=== PATIENT | female | born 1935 | race Caucasian/White ===

== ENCOUNTER 2017-07-25 19:49 | Inpatient (IN) | payer OTHER ==
[~2017-07-25] VITALS: Ht 144.8 cm; Wt 57.7 kg
[~2017-07-25 19:49] MED LIST: BENICAR40 MG PO; CIPROFLOXACIN PO; CORE25 PO; ECO81 PO; FENOFIBRATE145 M1 PO; GLUCOPHAGE1000 MG PO; IMDUR30 MG PO; JANUVIA100 M1 PO; LEVOTHYROXIN0.075 M2 PO; MAPAP325 MG PO; OYSTERCAL 500500 MG PO; VITAMIN D35000 IU PO; Z PO; ZYL100 PO
[2017-07-25 20:32] LABS: UA SPECIFIC GRAVITY 1.025 (1.005-1.035); microscopic required? YES; urine erythrocyte TRACE (NEGATIVE)
[2017-07-25 20:33] LABS: BASOPHIL % 0.1 % (0-2); PLATELET COUNT 165 x10^3mcL (130-400)
[2017-07-25 20:41] LABS: CARBON DIOXIDE 27.2 mmol/L (21-32); CHLORIDE SERUM 108 mmol/L (98-107); GLUCOSE SERUM 243 mg/dL (74-106); POTASSIUM SERUM 3.2 mmol/L (3.5-5.1); SODIUM SERUM 140 mmol/L (136-145)
[2017-07-25 20:45] LABS: ALKALINE PHOSPHATASE 65 U/L (46-116); ALT/SGPT 12 U/L (14-59); AST/SGOT 13 U/L (15-37); BILIRUBIN TOTAL 0.5 mg/dL (0.20-1.00)
[2017-07-25 20:46] LABS: ALBUMIN 2.5 g/dL (3.4-5.0); TOTAL PROTEIN, SERUM 5.6 g/dL (6.4-8.2)
[2017-07-25] MEDS ORDERED: LEVOFLOXACIN500 M1 PO (21:05)
[2017-07-25] MEDS ORDERED: LEVOTHYROXINE0.15 M2 PO (21:08)
[2017-07-25] MEDS ORDERED: ALDACTONE25 MG PO (21:08)
[2017-07-25] MEDS ORDERED: PROCHLORPERAZIN10 MG PO (21:08)
[2017-07-25] MEDS ORDERED: NITROFURANTOIN100 MG PO (21:09)
[2017-07-25 21:54] LABS: PHOSPHOROUS 3.6 mg/dL (2.5-4.9)
[2017-07-25 21:56] LABS: CHOLESTEROL/HDL RATIO 5.1
[2017-07-25 22:12] LABS: AMPHETAMINE QUAL UR NONE DETECTED (NEG <=1000)
[2017-07-25 22:31] VITALS: BP 106/65
[2017-07-25 22:33] VITALS: Ht 144.8 cm; Wt 57.7 kg
[2017-07-25 23:15] VITALS: BP 106/65
[2017-07-26 05:55] VITALS: BP 150/58
[2017-07-26 05:56] LABS: BASOPHIL % 0.4 % (0-2); PLATELET COUNT 132 x10^3mcL (130-400)
[2017-07-26 06:07] LABS: CALCIUM 7.9 mg/dL (8.5-10.1); CARBON DIOXIDE 26.2 mmol/L (21-32); CHLORIDE SERUM 112 mmol/L (98-107); CREATININE SERUM 0.8 mg/dL (0.6-1.0); GLUCOSE SERUM 133 mg/dL (74-106); MAGNESIUM 1.9 mg/dL (1.8-2.4); POTASSIUM SERUM 3.4 mmol/L (3.5-5.1); SODIUM SERUM 142 mmol/L (136-145)
[2017-07-26 06:59] LABS: RED CELL DISTRIBUTION WIDTH 15.2 % (11.5-14.5)
[2017-07-26 08:48] VITALS: BP 140/63
[2017-07-26 13:54] VITALS: BP 146/60
[2017-07-26 18:13] VITALS: BP 168/74
[2017-07-26 22:35] VITALS: BP 127/52
[2017-07-27] VITALS (7 sets, daily range): BP systolic 136–192; BP diastolic 65–84
[2017-07-27 06:20] LABS: BASOPHIL % 0.3 % (0-2); PLATELET COUNT 146 x10^3mcL (130-400)
[2017-07-27 06:45] LABS: RED CELL DISTRIBUTION WIDTH 15.3 % (11.5-14.5)
[2017-07-27 06:51] LABS: CALCIUM 8.4 mg/dL (8.5-10.1); CARBON DIOXIDE 26.3 mmol/L (21-32); CHLORIDE SERUM 106 mmol/L (98-107); CREATININE SERUM 0.7 mg/dL (0.6-1.0); GLUCOSE SERUM 96 mg/dL (74-106); MAGNESIUM 1.6 mg/dL (1.8-2.4); POTASSIUM SERUM 3.8 mmol/L (3.5-5.1); SODIUM SERUM 143 mmol/L (136-145)
[2017-07-28 06:09] VITALS: BP 174/83
[2017-07-28 06:13] LABS: BASOPHIL % 0.3 % (0-2); PLATELET COUNT 166 x10^3mcL (130-400)
[2017-07-28 06:38] LABS: RED CELL DISTRIBUTION WIDTH 14.8 % (11.5-14.5)
[2017-07-28 06:39] LABS: CARBON DIOXIDE 25.6 mmol/L (21-32); CHLORIDE SERUM 105 mmol/L (98-107); CREATININE SERUM 0.7 mg/dL (0.6-1.0); GLUCOSE SERUM 219 mg/dL (74-106); MAGNESIUM 2.1 mg/dL (1.8-2.4); PHOSPHOROUS 3.2 mg/dL (2.5-4.9); POTASSIUM SERUM 3.3 mmol/L (3.5-5.1); SODIUM SERUM 139 mmol/L (136-145)
[2017-07-28 09:53] VITALS: BP 170/83
[2017-07-28 12:30] VITALS: BP 106/35
[2017-07-28 16:50] VITALS: BP 140/61
[2017-07-28 21:00] VITALS: BP 156/66
[2017-07-29 06:29] VITALS: BP 167/73
[2017-07-29 09:13] VITALS: BP 139/63
[2017-07-29 17:34] VITALS: BP 153/66
[2017-07-29 21:26] VITALS: BP 160/67
[2017-07-30 06:47] VITALS: BP 183/73
[2017-07-30 07:53] LABS: BASOPHIL % 0.2 % (0-2); PLATELET COUNT 165 x10^3mcL (130-400)
[2017-07-30 08:23] LABS: CALCIUM 8.4 mg/dL (8.5-10.1); CARBON DIOXIDE 28.6 mmol/L (21-32); CHLORIDE SERUM 106 mmol/L (98-107); CREATININE SERUM 0.7 mg/dL (0.6-1.0); GLUCOSE SERUM 205 mg/dL (74-106); MAGNESIUM 1.7 mg/dL (1.8-2.4); PHOSPHOROUS 2.6 mg/dL (2.5-4.9); SODIUM SERUM 142 mmol/L (136-145)
[2017-07-30 08:30] VITALS: BP 155/83
[2017-07-30 13:03] VITALS: BP 111/53
[2017-07-30] MEDS ORDERED: ZES20 PO (15:02)
[2017-07-30] MEDS ORDERED: COUGH100 MG/5 M PO (15:03)
[2017-07-30] MEDS ORDERED: SYN125 PO (15:05)
[2017-07-30] MEDS ORDERED: LEVAQUIN750 MG PO (15:08)
[2017-07-30] MEDS ORDERED: CARVEDILOL12.5 M1 PO (15:11)
[2017-07-30] MEDS ORDERED: CLEOCIN HCL300 MG PO (15:11)
[2017-07-30] MEDS ORDERED: LAC PO (15:14)
[2017-07-30 15:35] VITALS: BP 111/53
== END 2017-07-30 16:45 | disposition home or self-care (01) | DRG 177 ==
LOC: ED 19:49 → DU 21:11 → MU 07-27 18:30
PROVIDERS: Emergency Medicine; Family Medicine; Family Medicine Sports Medicine
DX: J69.0 Pneumonitis due to inhalation of food and vomit (principal); J96.00 Acute respiratory failure, unspecified whether with hypoxia or hypercapnia; E43 Unspecified severe protein-calorie malnutrition; N17.0 Acute kidney failure with tubular necrosis; I16.0 Hypertensive urgency; E86.0 Dehydration; R55 Syncope and collapse; G90.9 Disorder of the autonomic nervous system, unspecified; J84.10 Pulmonary fibrosis, unspecified; K56.41 Fecal impaction; E11.65 Type 2 diabetes mellitus with hyperglycemia; E11.51 Type 2 diabetes mellitus with diabetic peripheral angiopathy without gangrene; E03.9 Hypothyroidism, unspecified; D64.9 Anemia, unspecified; Z74.01 Bed confinement status; Z79.84 Long term (current) use of oral hypoglycemic drugs; Z79.82 Long term (current) use of aspirin; Z66 Do not resuscitate
CPT/HCPCS: 36600; 82962; 83880; 84439; 87804; J0360; J0456; J0696; J2405; J2543; J2920; J3475; J3480; J3490; J7030; J7050; J7620; P9047; Q0092